=== PATIENT | male | born 1940 | race Caucasian/White ===

== ENCOUNTER 2017-12-15 10:45 | Emergency (ER) | payer MEDICARE, BC ==
--- NOTE | 2017-12-15 12:06 | EDM.PDOC ---
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 He left the water running and flooded the basement. His asked him some questions and he was confused about the date and recent history so she brought him in to be evaluated. He seemed better in route but now seems worse again. No head trauma, no fever or chills, no illness. Onset: Sudden Severity: Moderate denies Pain Score (Numeric/FACES): 0 - Related Data Allergies Allergy/AdvReac Type Severity Reaction Status Date / Time atorvastatin [From Lipitor] Allergy Pain Verified 12/15/17 11:10 ezetimibe [From Zetia] Allergy Pain Verified 12/15/17 11:10 niacin Allergy Pain Verified 12/15/17 11:10 pravastatin Allergy Pain Verified 12/15/17 11:10 simvastatin [From Zocor] Allergy Pain Verified 12/15/17 11:10 Sulfa (Sulfonamide Allergy Hives Verified 12/15/17 11:10 Antibiotics) tobramycin Allergy Itching Verified 12/15/17 11:10 Home Meds: Home Meds Aspirin [Adult Aspirin] 81 mg PO DAILY 12/15/17 [History] Docusate Sodium [Colace] 100 mg PO BID 12/15/17 [History] Docusate Sodium [Watson' Laxative] 500 mg PO DAILY 12/15/17 [History] Fish Oil/[place]-3 Fatty Acids [Fish Oil 1,000 MG] 1 each PO DAILY 12/15/17 [ History] Hypromellose [GenTeal Severe Dry Eye Relief] 1 drop TOP BEDTIME 12/15/17 [ History] Metoprolol Tartrate 1 tab PO BID 12/15/17 [History] Triamterene/Hydrochlorothiazid [Maxzide 75 mg-50 mg Tablet] 1 each PO DAILY [History] Ubidecarenone [Coenzyme Q10] 100 mg PO DAILY 12/15/17 [History] Past Medical History HEENT History: Reports: Impaired Vision Cardiovascular History: Reports: High Cholesterol, Hypertension Neurological History: Reports: Other (See Below) Other Neuro History: Global amnesia Endocrine/Metabolic History: Reports: Obesity/BMI 30+ - Infectious Disease History Infectious Disease History: Reports: Chicken Pox, Mumps - Past Surgical History HEENT Surgical History: Reports: Cataract Surgery, Tonsillectomy GI Surgical History: Reports: Colonoscopy, Other (See Below) Other GI Surgeries/Procedures: hemorroidectomy Dermatological Surgical History: Reports: Skin Biopsy Social & Family History - Tobacco Use Smoking Status *Q: Never Smoker Second Hand Smoke Exposure: No - Caffeine Use Caffeine Use: Reports: Coffee, Soda - Recreational Drug Use Recreational Drug Use: No ED ROS GENERAL - Review of Systems Review Of Systems: See Below Constitutional: Denies: Fever, Chills, Malaise HEENT: Reports: No Symptoms Respiratory: Denies: Shortness of Breath Cardiovascular: Denies: Chest Pain GI/Abdominal: Denies: Abdominal Pain, Nausea, Vomiting Musculoskeletal: Reports: No Symptoms. Denies: Neck Pain Skin: Reports: No Symptoms Neurological: Reports: Confusion. Denies: Headache, Weakness Psychiatric: Reports: No Symptoms - Physical Exam Exam: See Below Exam Limited By: No Limitations General Appearance: Alert, No Apparent Distress Eye Exam: Bilateral Eye: Normal Inspection Head Exam: Atraumatic Neck: Normal Inspection Respiratory/Chest: No Respiratory Distress, Lungs Clear Cardiovascular: Regular Rate, Rhythm Neuro Exam (Abbreviated): Alert, No Motor/Sensory Deficits, Other (Romberg is negative, no pronator drift). No: Oriented (Disoriented to place and time, which is extremely unusual for the patient) DTR: 2+: Achilles (R), Achilles (L) Extremities: Normal Inspection Psychiatric: Normal Affect, Normal Mood Skin Exam: Warm, Dry Course - Vital Signs Last Recorded V/S: Last Vital Signs Temp 96.6 F 12/15/17 11:41 Pulse 73 12/15/17 11:41 Resp 14 12/15/17 11:41 BP 159/9 H 12/15/17 11:41 Pulse Ox 92 L 12/15/17 11:41 - Orders/Labs/Meds Labs: Laboratory Tests 12/15/17 12/15/17 Range/Units 11:59 11:59 WBC 5.8 (4.5-11.0) K/uL RBC 5.52 (4.30-5.90) M/uL Hgb 17.8 H (12.0-15.0) g/dL Hct 50.9 (40.0-54.0) % MCV 92 (80-98) fL MCH 32 H (27-31) pg MCHC 35 (32-36) % Plt Count 231 (150-400) K/uL Neut % (Auto) 60 (36-66) % Lymph % (Auto) 27 (24-44) % [place] % (Auto) 11 H (2-6) % Eos % (Auto) 1 L (2-4) % Baso % (Auto) 0 (0-1) % Sodium 139 L (140-148) mmol/L Potassium 3.6 (3.6-5.2) mmol/L Chloride 100 (100-108) mmol/L Carbon Dioxide 27 (21-32) mmol/L Anion Gap 15.6 H (5.0-14.0) mmol/L BUN 13 (7-18) mg/dL Creatinine 0.8 (0.8-1.3) mg/dL Est Cr Clr Drug Dosing 78.56 mL/min Estimated GFR (MDRD) > 60 (>60) Glucose 115 H (74-106) mg/dL Calcium 8.9 (8.5-10.1) mg/dL - Re-Assessments/Exams Free Text/Narrative Re-Assessment/Exam: 12/15/17 12:28 CBC and BMP were obtained which were reassuring. Head CT without contrast was obtained. 12/15/17 12:[address] showed some mild chronic atrophy but no acute findings. Patient continued to slowly improve and his was comfortable taking him home, observing him and returning tomorrow if symptoms haven't improved. At that point we can obtain an MRI. She'll return sooner if he develops physical deficits. Departure - Departure Time of Disposition: 13:08 Disposition: Home, Self-Care 01 Condition: Fair Clinical Impression: Amnesia, global, transient - Discharge Information Instructions: Transient Global Amnesia Referrals: Kaz Alvarez MD [Primary Care Provider] - Forms: ED Department Discharge Care Plan Goals: Activity and diet as tolerated but avoid the septic system or operating tools or machinery today. Return tomorrow if not significant improvement or return sooner if worsening such as physical weakness or other concerns.
--- NOTE | 2017-12-15 13:22 | CT ---
Head wo Cont CLINICAL HISTORY: Memory loss COMPARISON: 2006 TECHNIQUE: Transverse scans were obtained from the base of the skull through the vertex without IV co ntrast on a multislice, multidetector CT scanner. Auto dosage reduction and iterative reconstruction techniques employed. FINDINGS: No focal abnormal parenchymal density is seen.. There is no mass effect, hemorrhage, or ext raaxial collection. The basal cisterns and sulci over the convexities are prominent. The ventricles a re normal for age. There is some mild periventricular lucency. IMPRESSION: Age-related atrophy. Mild the scattered foci of chronic ischemic microvascular change
== END 2017-12-15 13:09 | disposition home or self-care (01) ==
LOC: JP.ED 10:45
DX: G45.4 Transient global amnesia (principal); I10 Essential (primary) hypertension; E78.00 Pure hypercholesterolemia, unspecified; Z79.82 Long term (current) use of aspirin; Z79.899 Other long term (current) drug therapy; Z88.1 Allergy status to other antibiotic agents; Z88.8 Allergy status to other drugs, medicaments and biological substances
CPT/HCPCS: 36415; 70450; 70450-26; 80048; 85025; 99284-25

== ENCOUNTER 2020-03-07 09:10 | Day surgery (SDC) | payer BC, MEDICARE ==
[~2020-03-07 09:10] MED LIST: Bupivacaine 0.5% 50 ML MDV ONE; Lidocaine 1% 50 ML MDV ONE; Propofol 200 MG/20 ML SDV ONE; fentaNYL 100 MCG/2 ML SDV ONE
[2020-03-07] MEDS ORDERED: fentaNYL 100 MCG/2 ML SDV ONE (09:28)
[2020-03-07] MEDS ORDERED: Propofol 200 MG/20 ML SDV ONE (09:28)
[2020-03-07] MEDS ORDERED: Midazolam 1 MG/ML 2 ML SDV ONE (09:28)
[2020-03-07] MEDS ORDERED: ceFAZolin 2 GM in Premix Bag 1 BAG IV ONE (10:00)
[2020-03-07] MEDS ORDERED: Dextrose 5%-Lactated Ringers 1,000 ML IV SCH (10:00)
[2020-03-07] MEDS ORDERED: Bacitracin Oint 1 GM U/D Packet ONE (11:50)
--- NOTE | 2020-03-14 12:52 | OR ---
DATE OF PROCEDURE: 03/07/2020 SURGEON: Abelino Lentz MD PREOPERATIVE DIAGNOSIS: Probable basal cell carcinoma of the left side of the nose. POSTOPERATIVE DIAGNOSIS: Probable basal cell carcinoma of the left side of the nose. PROCEDURE: Excision of probable basal cell carcinoma of left side of the nose with layered closure ([id number]). ANESTHESIA: Local plus IV sedation. INDICATIONS FOR PROCEDURE: A 79-year-old male presenting with what appears to be a basal cell carcinoma on the left side of his nose. He has previously had skin cancers removed from the nasal area. Plan is to proceed with excision of this. Potential risks including bleeding, infection, local or distant recurrence, possible need for re-excision based on pathologic findings with subsequent clinical course were all reviewed, and the patient wishes to proceed. DETAILS OF PROCEDURE: The patient was taken to the operating room, placed in a supine position. After IV sedation was administered, nose and surroundings areas were prepped and draped and anesthetized with 1% lidocaine mixed with Marcaine. The incision had been marked out at that point and a slightly oblique highly oriented elliptical incision was made around the lesion and taken down through the skin and subcutaneous tissue superficially into the underlying cartilage. The length of the incision was 2.1 cm and the margin plus lesion length was 1.7 cm. Small abnormal appearing skin was removed around the raised lesion and the specimen was delivered from the field. Incision was closed with some 5-0 Vicryl stitch deep and then 5-0 Prolene skin stitch. Some bacitracin was applied. We will see the patient back next Friday for recheck and suture removal. Abelino Lentz MD /[id number]
== END 2020-03-07 14:05 | disposition home or self-care (01) ==
LOC: JP.SDS 09:10
PROVIDERS: ATTEND Surgery
DX: C44.311 Basal cell carcinoma of skin of nose (principal); E78.5 Hyperlipidemia, unspecified; I10 Essential (primary) hypertension; E66.9 Obesity, unspecified; Z88.8 Allergy status to other drugs, medicaments and biological substances; Z68.41 Body mass index [BMI] 40.0-44.9, adult
CPT/HCPCS: 11642; 12051; 88305; J0690; J2001; J2704; J3010; J3490; J7121; J2250

== ENCOUNTER 2021-04-15 05:44 | Emergency (ER) | payer MEDICARE ==
--- NOTE | 2021-04-15 06:11 | EDM.PDOC ---
ED HPI GENERAL MEDICAL PROBLEM - General Chief Complaint: General Stated Complaint: MEDICAL VIA [facility] Time Seen by Provider: 04/15/21 06:05 Source of Information: Reports: Patient, EMS History Limitations: Reports: No Limitations - History of Present Illness INITIAL COMMENTS - FREE TEXT/NARRATIVE: 80-year-old male, unvaccinated for Covid, started feeling poorly 5 days ago and he and his went into the clinic to get tested. They were positive, he received monoclonal antibody therapy 2 days ago. This evening he was feeling weak, just did not feel well. I am not sure if he thought he was supposed to be better after the antibody therapy but he looks extremely good for someone his age to get Covid without the vaccine protection. His vitals are all normal, O2 sats are normal, respiratory rate is normal, and his only complaint is fatigue and generalized malaise. Onset: Gradual Duration: Day(s): (Ill for 5 days) Associated Symptoms: Reports: Cough (Minimal cough). Denies: Fever/Chills, Headaches, Shortness of Breath Treatments TELESALES CONSULTANT: Reports: See EMS Report - Related Data Allergies Allergy/AdvReac Type Severity Reaction Status Date / Time atorvastatin [From Lipitor] Allergy Pain Verified 04/15/21 05:52 ezetimibe [From Zetia] Allergy Pain Verified 04/15/21 05:52 niacin Allergy Pain Verified 04/15/21 05:52 pravastatin Allergy Pain Verified 04/15/21 05:52 rosuvastatin Allergy Muscle Verified 04/15/21 05:52 Aches simvastatin [From Zocor] Allergy Pain Verified 04/15/21 05:52 Sulfa (Sulfonamide Allergy Hives Verified 04/15/21 05:52 Antibiotics) tobramycin Allergy Itching Verified 04/15/21 05:52 Home Meds: Home Meds Aspirin [Adult Aspirin] 81 mg PO DAILY 12/15/17 [History] Docusate Sodium [Watson' Laxative] 250 mg PO DAILY 12/15/17 [History] Fish Oil/[place]-3 Fatty Acids [Fish Oil 1,000 MG] 1 each PO DAILY 12/15/17 [History] Metoprolol Tartrate 100 mg PO BID 12/15/17 [History] Triamterene/Hydrochlorothiazid [Maxzide 75 mg-50 mg Tablet] 1 each PO DAILY 12/15/17 [History] Ubidecarenone [Coenzyme Q10] 100 mg PO DAILY 12/15/17 [History] Indomethacin [Indocin] 50 mg PO TID 03/03/20 [History] Dextran 70/Hypromellose [Artificial Tears Eye Drops] 1 drop EYEBOTH ASDIRECTED 03/07/20 [History] Past Medical History HEENT History: Reports: Impaired Vision Cardiovascular History: Reports: High Cholesterol, Hypertension Gastrointestinal History: Reports: Chronic Constipation, Hemorrhoids Musculoskeletal History: Reports: Gout Neurological History: Reports: Other (See Below) Other Neuro History: Global amnesia Endocrine/Metabolic History: Reports: Obesity/BMI 30+ Dermatologic History: Reports: Eczema - Infectious Disease History Infectious Disease History: Reports: Chicken Pox, Mumps, Novel Coronavirus - Past Surgical History HEENT Surgical History: Reports: Cataract Surgery, Tonsillectomy Cardiovascular Surgical History: Reports: None GI Surgical History: Reports: Colonoscopy, Other (See Below) Other GI Surgeries/Procedures: hemorroidectomy Neurological Surgical History: Reports: None Musculoskeletal Surgical History: Reports: None Dermatological Surgical History: Reports: Skin Biopsy Social & Family History - Family History Family Medical History: No Pertinent Family History - Tobacco Use Tobacco Use Status *Q: Never Tobacco User - Caffeine Use Caffeine Use: Reports: None - Recreational Drug Use Recreational Drug Use: No ED ROS GENERAL - Review of Systems Review Of Systems: See Below Constitutional: Reports: Malaise. Denies: Fever, Chills HEENT: Denies: Throat Pain Respiratory: Reports: Cough. Denies: Shortness of Breath GI/Abdominal: Reports: No Symptoms Skin: Reports: No Symptoms Neurological: Reports: Dizziness, Weakness Psychiatric: Reports: No Symptoms ED EXAM, GENERAL - Physical Exam Exam: See Below Exam Limited By: No Limitations General Appearance: Alert, No Apparent Distress Eye Exam: Bilateral Eye: Normal Inspection Head: Atraumatic Neck: Non-Tender Respiratory/Chest: Lungs Clear Cardiovascular: Regular Rate, Rhythm. No: Tachycardia GI/Abdominal: Soft, Non-Tender Extremities: Normal Inspection. No: Pedal Edema Neurological: Alert, Oriented Psychiatric: Flat Affect Skin Exam: Warm, Dry Course - Vital Signs Last Recorded V/S: Last Vital Signs Temp 97.4 F 04/15/21 05:48 Pulse 63 04/15/21 05:48 Resp 16 04/15/21 05:48 BP 153/72 H 04/15/21 05:48 Pulse Ox 96 04/15/21 05:48 - Orders/Labs/Meds Labs: Laboratory Tests 04/15/21 04/15/21 Range/Units 06:10 06:10 WBC 3.0 L (4.5-11.0) K/uL RBC 5.21 (4.30-5.90) M/uL Hgb 16.7 H (12.0-15.0) g/dL Hct 46.1 (40.0-54.0) % MCV 89 (80-98) fL MCH 32 H (27-31) pg MCHC 36 (32-36) % Plt Count 146 L (150-400) K/uL Neut % (Auto) 31.6 L (36-66) % Lymph % (Auto) 46.4 H (24-44) % [place] % (Auto) 21.7 H (2-6) % Eos % (Auto) 0.0 L (2-4) % Baso % (Auto) 0.3 (0-1) % Sodium 128 L (140-148) mmol/L Potassium 3.0 L (3.6-5.2) mmol/L Chloride 88 L (100-108) mmol/L Carbon Dioxide 30 (21-32) mmol/L Anion Gap 13.0 (5.0-14.0) mmol/L BUN 9 (7-18) mg/dL Creatinine 0.5 L (0.8-1.3) mg/dL Est Cr Clr Drug Dosing TNP Estimated GFR (MDRD) > 60 (>60) Glucose 127 H (74-106) mg/dL Calcium 7.7 L (8.5-10.1) mg/dL Meds: Medications Discontinued Medications Generic Name Dose Route Start Last Admin Trade Name Freq PRN Reason Stop Dose Admin Potassium Chloride 20 meq 04/15/21 06:50 04/15/21 06:57 Potassium Chloride 20 Meq Tab.Er PO 04/15/21 06:51 20 meq ONETIME ONE Administration - Re-Assessments/Exams Free Text/Narrative Re-Assessment/Exam: 04/15/21 06:13 Explained to the patient that he really looks excellent for someone his age to have Covid 5 days into his illness without the protection of the vaccine. CBC and BMP were obtained for reassurance. 11/21/21 06:46 Potassium sodium and chloride are moderately low, potassium was 3.0 but it was only 3.6 3 years ago when he was here for another reason. White count is mildly low which is typical of Covid. He was given 20 mEq of potassium orally, and encouraged to eat potassium rich foods and was given some written information. He can return if he has difficulty breathing, otherwise stay hydrated and increase activity as tolerated. Departure - Departure Time of Disposition: 06:58 Disposition: Home, Self-Care 01 Clinical Impression: COVID-19, Weakness, Hypokalemia - Discharge Information Instructions: COVID-19 Frequently Asked Questions, COVID-19, Hypokalemia, Potassium Content of Foods, Weakness Referrals: PCP,None [Primary Care Provider] - Forms: ED Department Discharge Care Plan Goals: Stay hydrated, eat a good diet including potassium rich foods, and increase activity as tolerated. Return anytime if difficulty breathing but expected period of time where you do not feel well and feel weak, this is typical for a Covid infection. Sepsis Event Note (ED) - Evaluation Sepsis Screening Result: No Definite Risk - Focused Exam Vital Signs: Vital Signs Temp Pulse Resp BP Pulse Ox 04/15/21 05:48 97.4 F 63 16 153/72 H 96
[2021-04-15] MEDS ORDERED: Potassium Chloride 20 MEQ Tab.ER PO ONE (06:50)
== END 2021-04-15 06:58 | disposition home or self-care (01) ==
LOC: JP.ED 05:44
DX: U07.1 COVID-19 (principal); E87.6 Hypokalemia; I10 Essential (primary) hypertension; M10.9 Gout, unspecified; E66.9 Obesity, unspecified; Z68.41 Body mass index [BMI] 40.0-44.9, adult; Z88.8 Allergy status to other drugs, medicaments and biological substances; Z88.1 Allergy status to other antibiotic agents; Z88.2 Allergy status to sulfonamides; Z79.82 Long term (current) use of aspirin; Z79.899 Other long term (current) drug therapy
CPT/HCPCS: 36415; 80048; 85025; 99284; A9270

== ENCOUNTER 2022-04-29 07:52 | Day surgery (SDC) | payer MEDICARE ==
[~2022-04-29 07:52] MED LIST changes: -Bupivacaine 0.5% 50 ML MDV ONE; -Lidocaine 1% 50 ML MDV ONE
[2022-04-29] MEDS ORDERED: Lactated Ringers 1,000 ML IV SCH (08:00)
[2022-04-29] MEDS ORDERED: Propofol 200 MG/20 ML SDV ONE (09:28)
== END 2022-04-29 11:05 | disposition home or self-care (01) ==
LOC: EDSEX → JP.SDS 07:52 → MERGE 10:30 → JP.SDS 11:05
PROVIDERS: ATTEND Student in an Organized Health Care Education/Training Program
DX: C19 Malignant neoplasm of rectosigmoid junction (principal); I10 Essential (primary) hypertension; E78.5 Hyperlipidemia, unspecified; E66.9 Obesity, unspecified; M10.9 Gout, unspecified; Z68.41 Body mass index [BMI] 40.0-44.9, adult; Z88.2 Allergy status to sulfonamides; Z80.0 Family history of malignant neoplasm of digestive organs; Z79.899 Other long term (current) drug therapy; Z88.3 Allergy status to other anti-infective agents; Z88.1 Allergy status to other antibiotic agents; Z88.8 Allergy status to other drugs, medicaments and biological substances
CPT/HCPCS: 45385; J2704; J3010; J7120; 88305; 88341; 88342

== ENCOUNTER 2022-05-14 05:09 | Inpatient (IN) | payer MEDICARE ==
[2022-05-14] MEDS ORDERED: Dextrose 5%-Lactated Ringers 1,000 ML IV SCH (06:00)
[2022-05-14] MEDS ORDERED: Scopolamine 1.5 MG Transdermal Patch TOP SCH (06:00)
[2022-05-14] MEDS ORDERED: Acetaminophen 500 MG Tab PO ONE (06:00)
[2022-05-14] MEDS ORDERED: Meropenem 500 MG SDV ONE (06:35)
[2022-05-14] MEDS ORDERED: Lidocaine 1% with EPINEPHrine 1:100,000 50 ML MDV ONE (06:36)
[2022-05-14] MEDS ORDERED: Bupivacaine 0.5% 30 ML SDV ONE (06:36)
[2022-05-14] MEDS ORDERED: Dexamethasone 4 MG/ML SDV ONE (07:02)
[2022-05-14] MEDS ORDERED: Propofol 200 MG/20 ML SDV ONE (07:02)
[2022-05-14] MEDS ORDERED: Neostigmine Methylsulfate 1 MG/ML 5 ML Syringe ONE (07:02)
[2022-05-14] MEDS ORDERED: Ondansetron 4 MG/2 ML SDV ONE (07:02)
[2022-05-14] MEDS ORDERED: Glycopyrrolate 0.2 MG/ML 5 ML MDV ONE (07:02)
[2022-05-14] MEDS ORDERED: Succinylcholine 200 MG/10 ML MDV ONE (07:02)
[2022-05-14] MEDS ORDERED: fentaNYL 250 MCG/5 ML SDV ONE (07:02)
[2022-05-14] MEDS ORDERED: Rocuronium 50 MG/5 ML Vial ONE (07:02)
[2022-05-14] MEDS ORDERED: Sodium Chloride 0.9% 10 ML ONE ×2 (07:05→08:34)
[2022-05-14] MEDS ORDERED: cefOXitin 2 GM in Sodium Chloride 0.9% 50 ML IV ONE (07:15)
[2022-05-14] MEDS ORDERED: Ketamine 19 MG in Sodium Chloride 0.9% 19.81 ML IV SCH (07:30)
[2022-05-14] MEDS ORDERED: Ketamine 500 MG/5 ML MDV IV SCH (07:30)
[2022-05-14] MEDS ORDERED: Naloxone 0.4 MG/ML SDV IVPUSH PRN (07:30)
[2022-05-14] MEDS ORDERED: Scopolamine 1.5 MG Transdermal Patch ONE (08:00)
[2022-05-14] MEDS ORDERED: ePHEDrine 50 MG/ML SDV ONE (08:05)
[2022-05-14] MEDS ORDERED: Phenylephrine 1% 10 MG/ML SDV ONE (08:34)
[2022-05-14] MEDS ORDERED: Lactated Ringers 1,000 ML ONE (09:05)
[2022-05-14] MEDS ORDERED: Cyclobenzaprine 10 MG Tab PO PRN (10:33)
[2022-05-14] MEDS ORDERED: diphenhydrAMINE 50 MG/ML SDV IVPUSH PRN ×2 (11:00)
[2022-05-14] MEDS ORDERED: hydrOXYzine HCL 100 MG/2 ML SDV IM PRN (11:00)
[2022-05-14] MEDS ORDERED: Naloxone 0.4 MG/ML SDV IV PRN (11:00)
[2022-05-14] MEDS ORDERED: Metoclopramide 10 MG/2 ML SDV IVPUSH PRN (11:00)
[2022-05-14] MEDS ORDERED: Ondansetron 4 MG/2 ML SDV IVPUSH PRN (11:00)
[2022-05-14] MEDS ORDERED: Labetalol 20 MG/4 ML Syringe IVPUSH PRN (11:00)
[2022-05-14] MEDS: Magnesium Sulfate/Water 2 GM in Premix Bag 1 BAG IV SCH ×3 (11:06→23:40)
[2022-05-14] MEDS: fentaNYL 2,500 MCG in Sodium Chloride 0.9% 200 ML EPIDUR SCH (11:08)
[2022-05-14] MEDS: cefOXitin 2 GM in Sodium Chloride 0.9% 50 ML IV SCH ×2 (13:40→19:27)
[2022-05-14] MEDS: Acetaminophen 500 MG Tab PO SCH ×2 (13:40→21:08)
[2022-05-14] MEDS: Pantoprazole 40 MG Vial IVPUSH SCH (13:41)
[2022-05-14] MEDS ORDERED: MVI, Adult with Vitamin K 10 ML, Thiamine 200 MG, Zinc/Copper/Manganese/Selenium 1 ML i... IV SCH ×4 (16:00)
[2022-05-14] MEDS: Tamsulosin 0.4 MG Cap.ER PO SCH (21:08)
[2022-05-14] MEDS: Metoprolol Tartrate 50 MG Tab PO SCH (21:08)
[2022-05-14] MEDS: Dextrose 5%-Lactated Ringers 1,000 ML IV SCH (21:22)
[2022-05-14] MEDS ORDERED: Lactated Ringers 500 ML IV ONE (23:51)
[2022-05-15] MEDS: cefOXitin 2 GM in Sodium Chloride 0.9% 50 ML IV SCH ×4 (01:45→20:24)
[2022-05-15] MEDS: Dextrose 5%-Lactated Ringers 1,000 ML IV SCH (03:00)
[2022-05-15] MEDS: Magnesium Sulfate/Water 2 GM in Premix Bag 1 BAG IV SCH ×5 (06:00→23:55)
[2022-05-15] MEDS: Acetaminophen 500 MG Tab PO SCH ×3 (06:00→21:54)
[2022-05-15] MEDS ORDERED: Lactated Ringers 500 ML IV SCH (06:45)
[2022-05-15 06:46] LABS: ESTIMATED GFR 86 mL/min (>60)
[2022-05-15] MEDS: Metoprolol Tartrate 50 MG Tab PO SCH ×2 (08:44→20:25)
[2022-05-15] MEDS: Celecoxib 200 MG Cap PO SCH ×2 (08:44→20:25)
[2022-05-15] MEDS: Hydrochlorothiazide/Triamterene 25-37.5 Tab PO SCH (08:45)
[2022-05-15] MEDS: fentaNYL 2,500 MCG in Sodium Chloride 0.9% 200 ML EPIDUR SCH (08:51)
[2022-05-15] MEDS: SCOPOLAMINE PATCH CHECK TOP SCH (09:44)
[2022-05-15] MEDS: Pantoprazole 40 MG Vial IVPUSH SCH (13:37)
[2022-05-15] MEDS ORDERED: MVI, Adult with Vitamin K 10 ML, Thiamine 200 MG, Zinc/Copper/Manganese/Selenium 1 ML i... IV SCH ×4 (16:00)
[2022-05-15] MEDS ORDERED: Dextrose 5%-Lactated Ringers 1,000 ML IV SCH (18:00)
[2022-05-15] MEDS: Tamsulosin 0.4 MG Cap.ER PO SCH (20:25)
[2022-05-16] MEDS: Acetaminophen 500 MG Tab PO SCH ×3 (05:19→21:01)
[2022-05-16] MEDS: Magnesium Sulfate/Water 2 GM in Premix Bag 1 BAG IV SCH ×4 (05:19→23:55)
[2022-05-16 05:29] LABS: ESTIMATED GFR 89 mL/min (>60)
[2022-05-16] MEDS ORDERED: Bupivacaine 0.5% 30 ML SDV ONE (06:37)
[2022-05-16] MEDS ORDERED: Meropenem 500 MG SDV ONE (06:37)
[2022-05-16] MEDS ORDERED: Lidocaine 1% with EPINEPHrine 1:100,000 50 ML MDV ONE (06:37)
[2022-05-16] MEDS ORDERED: Ketamine 500 MG/5 ML MDV IV SCH ×3 (07:30)
[2022-05-16] MEDS ORDERED: Ketamine 19 MG in Sodium Chloride 0.9% 19.81 ML IV SCH (07:30)
[2022-05-16] MEDS ORDERED: Propofol 200 MG/20 ML SDV ONE (07:36)
[2022-05-16] MEDS ORDERED: Cyanocobalamin (Vitamin B12) 1,000 MCG/ML SDV IM ONE (09:00)
[2022-05-16] MEDS: Hydrochlorothiazide/Triamterene 25-37.5 Tab PO SCH (09:00)
[2022-05-16] MEDS: Metoprolol Tartrate 50 MG Tab PO SCH ×2 (09:02→20:28)
[2022-05-16] MEDS: Celecoxib 200 MG Cap PO SCH ×2 (09:03→20:28)
[2022-05-16] MEDS: SCOPOLAMINE PATCH CHECK TOP SCH (09:03)
[2022-05-16] MEDS: fentaNYL 2,500 MCG in Sodium Chloride 0.9% 200 ML EPIDUR SCH (09:36)
[2022-05-16] MEDS: Pantoprazole 40 MG Delayed-Release Granules 1 Packet PO SCH (17:22)
[2022-05-16] MEDS: Tamsulosin 0.4 MG Cap.ER PO SCH (20:28)
[2022-05-17] MEDS: Magnesium Sulfate/Water 2 GM in Premix Bag 1 BAG IV SCH (05:31)
[2022-05-17] MEDS: Acetaminophen 500 MG Tab PO SCH ×3 (05:47→21:21)
[2022-05-17] MEDS ORDERED: HYDROmorphone 2 MG Tab PO PRN (08:24)
[2022-05-17] MEDS: Celecoxib 200 MG Cap PO SCH ×2 (09:35→20:57)
[2022-05-17] MEDS: Hydrochlorothiazide/Triamterene 25-37.5 Tab PO SCH (09:35)
[2022-05-17] MEDS: Metoprolol Tartrate 50 MG Tab PO SCH ×2 (09:36→20:57)
[2022-05-17] MEDS: Acetaminophen 500 MG Tab PO PRN ×2 (09:41→19:24)
[2022-05-17] MEDS: Enoxaparin 40 MG/0.4 ML Syringe SUBCUT SCH (09:41)
[2022-05-17] MEDS: Dextrose 5%-Lactated Ringers 1,000 ML IV SCH ×2 (10:55)
[2022-05-17] MEDS: Pantoprazole 40 MG Delayed-Release Granules 1 Packet PO SCH (16:18)
[2022-05-17] MEDS: Tamsulosin 0.4 MG Cap.ER PO SCH (20:57)
[2022-05-18] MEDS: Acetaminophen 500 MG Tab PO SCH ×2 (03:17→05:39)
[2022-05-18] MEDS: Dextrose 5%-Lactated Ringers 1,000 ML IV SCH (03:21)
[2022-05-18] MEDS: Enoxaparin 40 MG/0.4 ML Syringe SUBCUT SCH (08:42)
[2022-05-18] MEDS: Metoprolol Tartrate 50 MG Tab PO SCH (08:43)
[2022-05-18] MEDS: Hydrochlorothiazide/Triamterene 25-37.5 Tab PO SCH (08:43)
[2022-05-18] MEDS: Celecoxib 200 MG Cap PO SCH (08:43)
== END 2022-05-18 09:59 | disposition home or self-care (01) | DRG 330 ==
LOC: JP.SDSSCHI 05:09 → EDSTATUS 08:45 → JP.ICU 10:26 → JP.MS 05-16 10:29
PROVIDERS: ADMIT Surgery; ATTEND Surgery
PROC: 0DTN0ZZ Resection of Sigmoid Colon, Open Approach (ICD-10-PCS; principal; 2022-05-14)
PROC: 0DTP0ZZ Resection of Rectum, Open Approach (ICD-10-PCS; 2022-05-14)
PROC: 0D1N0ZP Bypass Sigmoid Colon to Rectum, Open Approach (ICD-10-PCS; 2022-05-14)
PROC: 0WQF0ZZ Repair Abdominal Wall, Open Approach (ICD-10-PCS; 2022-05-14)
PROC: 0DJD8ZZ Inspection of Lower Intestinal Tract, Via Natural or Artificial Opening Endoscopic (ICD-10-PCS; 2022-05-14)
PROC: 0HQ7XZZ Repair Abdomen Skin, External Approach (ICD-10-PCS; 2022-05-16)
DX: C18.7 Malignant neoplasm of sigmoid colon (principal); Z68.41 Body mass index [BMI] 40.0-44.9, adult; E66.01 Morbid (severe) obesity due to excess calories; I10 Essential (primary) hypertension; E78.2 Mixed hyperlipidemia; Z86.16 Personal history of COVID-19; Z85.828 Personal history of other malignant neoplasm of skin; Z90.89 Acquired absence of other organs; Z98.890 Other specified postprocedural states; Z88.2 Allergy status to sulfonamides; Z88.1 Allergy status to other antibiotic agents; Z88.8 Allergy status to other drugs, medicaments and biological substances
CPT/HCPCS: 36415; 80053; 83735; 83880; 84100; 85025; 85027; 88302; 88309; 93005; 97162-GP; 97530-GP; 97535-GP; A9270-GY; C9113; J0171; J0330; J0694; J1100; J1200; J1650; J2020; J2185; J2370; J2405; J2704; J2710; J2765; J2795; J3010; J3411; J3420; J3475; J3490; J7050; J7120; J7121

== ENCOUNTER 2023-05-14 07:24 | Day surgery (SDC) | payer MEDICARE ==
[2023-05-14] MEDS ORDERED: fentaNYL 50 MCG/ML SDV ONE (07:26)
[2023-05-14] MEDS ORDERED: Propofol 200 MG/20 ML SDV ONE (07:26)
[2023-05-14] MEDS ORDERED: Lactated Ringers 1,000 ML IV SCH (08:30)
== END 2023-05-14 10:45 | disposition home or self-care (01) ==
LOC: JP.SDS 07:24
PROVIDERS: ATTEND Student in an Organized Health Care Education/Training Program
DX: Z12.11 Encounter for screening for malignant neoplasm of colon (principal); D12.0 Benign neoplasm of cecum; D12.3 Benign neoplasm of transverse colon; I10 Essential (primary) hypertension
CPT/HCPCS: 45380; J2704; J3010; J7120

== ENCOUNTER 2023-09-04 21:35 | Emergency (ER) | payer MEDICARE ==
[2023-09-04 22:12] LABS: BASOPHILS ABSOLUTE AUTO 0.04 K/uL (0.00-0.10); BASOPHILS PERCENT AUTO 0.6 % (0.1-1.3); EOSINOPHILS ABSOLUTE AUTO 0.16 K/uL (0.00-0.40); EOSINOPHILS PERCENT AUTO 2.4 % (0.0-5.4); HEMOGLOBIN 16.5 g/dL (12.9-16.9); IMMATURE GRAN ABSOLUTE AUTO 0.03 K/uL (0.00-0.23); IMMATURE GRAN PERCENT AUTO 0.5 % (0.0-0.7); LYMPHOCYTES ABSOLUTE AUTO 2.74 K/uL (0.8-3.3); LYMPHOCYTES PERCENT AUTO 41.9 % (11.4-47.7); MEAN CORPUSCULAR HEMOGLOBIN 33.1 pg (31.6-35.5); MEAN CORPUSCULAR HGB CONC 34.4 g/dL (31.6-35.5); MEAN CORPUSCULAR VOLUME 96.2 fL (81.4-99.0); MONOCYTES ABSOLUTE AUTO 0.88 K/uL (0.20-0.90); MONOCYTES PERCENT AUTO 13.5 % (3.3-12.6); NEUTROPHILS ABSOLUTE AUTO 2.69 K/uL (1.0-7.6); NEUTROPHILS PERCENT AUTO 41.1 % (40.0-78.1); PLATELET COUNT,PLT 194 K/uL (130-375); RED BLOOD CELL COUNT 4.99 M/uL (4.14-5.76); WHITE BLOOD CELL COUNT,WBC 6.5 K/uL (3.2-11.0)
[2023-09-04 22:32] LABS: INR 1.1; PTT,PARTIAL THROMBOPLSTIN TIME 25.1 sec (21.8-27.3)
[2023-09-04 22:41] LABS: A/G RATIO 0.9 (1.2-2.2); ALANINE AMINOTRANSFERASE,ALT 17 U/L (12-78); ALBUMIN 3.2 g/dL (3.4-5.0); ALKALINE PHOSPHATASE 97 U/L (46-116); ASPARTATE AMNIOTRANSFERASE,AST 12 U/L (15-37); BILIRUBIN TOTAL 0.2 mg/dL (0.2-1.0); BLOOD UREA NITROGEN,BUN 23 mg/dL (7-18); CARBON DIOXIDE,CO2 34 mmol/L (21-32); CHLORIDE,CL 102 mmol/L (100-108); CREATININE 1.1 mg/dL (0.8-1.3); EST CRCL DRUG DOSING (CG) 50.95 mL/min; ESTIMATED GFR 67 mL/min (>60); GLUCOSE RANDOM 151 mg/dL (74-106); MAGNESIUM 1.7 mg/dL (1.8-2.4); POTASSIUM,K 4.1 mmol/L (3.6-5.2); PRO B-TYPE NATRIUR PEPT,BNPPRO 281 pg/mL (5-450); PROTEIN TOTAL,TP 6.9 g/dL (6.4-8.2); SODIUM,NA 143 mmol/L (140-148)
[2023-09-04 22:43] LABS: ANION GAP 11.1 mmol/L (5.0-14.0); C-REACTIVE PROTEIN < 0.50 mg/dL (<0.50)
[2023-09-05] MEDS ORDERED: Heparin Sodium/D5W 25,000 UNITS/500 ML BAG IV SCH (01:15)
[2023-09-05] MEDS ORDERED: Diltiazem 25 MG/5 ML SDV IVPUSH ONE (01:19)
[2023-09-05] MEDS: Nitroglycerin/D5W 25 MG/250 ML BOTTLE IV SCH (01:30)
[2023-09-05] MEDS: Heparin Sodium 5,000 Units/ML Vial IVPUSH ONE (01:31)
[2023-09-05] MEDS: Heparin Sodium/D5W 25,000 UNITS/500 ML BAG IV SCH (01:32)
[2023-09-05] MEDS ORDERED: Diltiazem 100 MG in Sodium Chloride 0.9% 100 ML IV SCH (02:00)
== END 2023-09-05 03:57 ==
LOC: JP.ED 21:35
DX: I24.9 Acute ischemic heart disease, unspecified (principal); I45.10 Unspecified right bundle-branch block; I48.91 Unspecified atrial fibrillation; I10 Essential (primary) hypertension; E66.9 Obesity, unspecified; R79.89 Other specified abnormal findings of blood chemistry; Z86.16 Personal history of COVID-19; Z79.899 Other long term (current) drug therapy; Z88.1 Allergy status to other antibiotic agents; Z88.8 Allergy status to other drugs, medicaments and biological substances
CPT/HCPCS: 36415; 71045; 80053; 83605; 83690; 83735; 83880; 84484; 85025; 85379; 85610; 85730; 86140; 93005; 93010; 96365; 96366; 96368; 99285; J1644; J2305